=== PATIENT | male | born 1980 | race Caucasian/White ===

== ENCOUNTER 2020-11-21 04:02 | Emergency (ER) | payer SELFPAY ==
[~2020-11-21] VITALS: Ht 180.3 cm; Wt 91.6 kg
--- NOTE | 2020-11-21 04:13 | NUR ---
PATIENT CAME TO ER BED 9 C/O DRUG USE. PATIENT STATES THAT HE TOOK ESTELLA AND HIS WAS FREAKING OUT AND WANTED THE PATIENT TO CHECK HIMSELF IN THE ER. PATIENT STATES THAT HE FEELS FINE. PATIENT IS ALERT AND ORIENTED x4. PUPILS ARE DILATED. PATIENT IS CONNECTED TO THE [employer]. BREATHING EVENLY AND UNLABORED ON ROOM AIR AT 99%.
--- NOTE | 2020-11-21 04:25 | NUR ---
Patient discharged to home in stable condition. Written and verbal after care instructions given. Patient verbalizes understanding of instruction.
--- NOTE | 2020-11-21 04:25 | NUR ---
PATIENT IS AMBULATORY WITH A STEADY GAIT.
--- NOTE | 2020-11-21 04:25 | NUR ---
TO TAKE PATIENT BACK HOME.
[2020-11-21 04:26] VITALS: BP 133/81
== END 2020-11-21 04:26 | disposition home or self-care (01) ==
LOC: ER 04:14
DX: F19.10 Other psychoactive substance abuse, uncomplicated (principal)